=== PATIENT | female | born 1980 ===

== ENCOUNTER 2019-03-23 18:06 | Emergency (ER) | payer SELFPAY ==
[~2019-03-23] VITALS: Ht 165.1 cm; Wt 50.0 kg
[2019-03-23 18:56] LABS: BASOPHILS # (AUTO) 0.1 X10'3 (0-0.2); BASOPHILS % (AUTO) 0.9 % (0-1); EOSINOPHILS % (AUTO) 0.6 % (0-6); HEMATOCRIT 33.9 % (35.0-45.0); HEMOGLOBIN 11.4 g/dl (12.0-16.0); LYMPHOCYTES # (AUTO) 2.7 X10'3 (1.1-4.8); LYMPHOCYTES % (AUTO) 45.6 % (21-51); MEAN CORPUSCULAR HGB CONC 33.6 g/dL (33.0-36.5); MEAN CORPUSCULAR VOLUME 86.5 FL (78-98); MEAN PLATELET VOLUME 7.5 FL (7.4-10.4); MONOCYTES # (AUTO) 0.5 X10'3 (0-0.9); MONOCYTES % (AUTO) 8.7 % (2-12); NEUTROPHILS # (AUTO) 2.7 X10'3 (1.8-7.7); NEUTROPHILS % (AUTO) 44.2 % (42-75); PLATELET COUNT 346 X10'3 (140-440); RED BLOOD COUNT 3.92 X10'6 (4.20-5.60); RED CELL DISTRIBUTION WIDTH 13.9 % (11.5-14.5)
--- NOTE | 2019-03-23 18:59 | NUR ---
CALLED POISON CONTROL PATIENT INGESTED UNKNOWN AMOUNT OF 2 MG RISPERDOL AND "VODKA."
--- NOTE | 2019-03-23 19:02 | NUR ---
CONTINUED NOTES, POISON CONTROL WATCH FOR BEAUTY THERAPIST DEPRESSION,ELEVATED HR,HYPOTENSION, SOMULENCE,N,V, SEIZURES, QTC ELONGATION, ELECTROLYTES
--- NOTE | 2019-03-23 19:04 | NUR ---
POISON CONTROLLED STATES 6-8 HRS OBSERVATION IN ER
[2019-03-23 19:09] LABS: ALANINE AMINOTRANSFERASE 17 U/L (12-78); ALBUMIN 3.5 G/DL (3.4-5.0); ALBUMIN/GLOBULIN RATIO 1.1 (1.1-1.5); ALKALINE PHOSPHATASE 42 IU/L (46-116); ANION GAP 14 (8-16); ASPARTATE AMINO TRANSFERASE 13 U/L (10-37); BILIRUBIN,TOTAL 0.3 MG/DL (0.1-1.0); BLOOD UREA NITROGEN 8 MG/DL (7-18); BUN/CREATININE RATIO 12.5 (6.6-38.0); CALCIUM 8.4 MG/DL (8.5-10.1); CHLORIDE 102 MMOL/L (99-107); CREATININE 0.64 MG/DL (0.40-0.90); ETHANOL 0.068 GM/DL (0.0-0.010); GLUCOSE 108 MG/DL (70-104); POTASSIUM 3.3 MMOL/L (3.5-5.1); SODIUM 136 MMOL/L (135-145); TOTAL PROTEIN 6.8 G/DL (6.4-8.2); eGFR > 90 ML/MIN
--- NOTE | 2019-03-23 19:57 | NUR ---
PATIENT IN BED COVERS ON EYES CLOSED RR EVEN UN LABORED, PATIENT EASY TO AROUSE NO OBSERVABLE S/S OF ACUTE STRESS AT THIS TIME
[2019-03-23] MEDS ORDERED: normal saline 1000ML IV soln IVB ONE (20:00)
[2019-03-23] MEDS ORDERED: magnesium 2GM in 50ml NS 50 ML IV ONE (20:05)
[2019-03-23] MEDS ORDERED: potassium 10mEq/100ml NS w/LIDOcaine (10mg/bag) IV ONE (20:05)
[2019-03-23] MEDS ORDERED: potassium CL 10mEq/100ml bag 100 ML IV ONE (20:15)
--- NOTE | 2019-03-23 21:07 | NUR ---
PATIENT UP REQUESTING TO GO TO BATHROOM PATIENT HAS BEEN ESCORTED TO THE BATHROOM WITH [employer] HELPER PATIENT IS AOX4 AND WAS OBSERVED AMBULATING WITH A STEADY GAIT UPON WALKING TO AND FROM THE RESTROOM
[2019-03-23 21:22] LABS: URINE HCG NEGATIVE (NEG)
[2019-03-23 21:33] LABS: URINE AMPHETAMINE SCREEN NEGATIVE (Neg); URINE BARBITUATE SCREEN NEGATIVE (Neg); URINE BENZODIAZEPINES SCREEN NEGATIVE (Neg); URINE CANNABINOID SCREEN NEGATIVE (Neg); URINE COCAINE SCREEN NEGATIVE (Neg); URINE METHADONE SCREEN NEGATIVE (Neg); URINE OPIATE SCREEN NEGATIVE (Neg); URINE PHENCYCLIDINE SCREEN NEGATIVE (Neg)
[2019-03-23 22:46] VITALS: BP 94/54
== END 2019-03-24 00:20 | disposition left against medical advice (07) ==
LOC: EDBD 18:07 → ER 18:07
DX: T43.591A Poisoning by other antipsychotics and neuroleptics, accidental (unintentional), initial encounter (principal); F10.129 Alcohol abuse with intoxication, unspecified; R94.6 Abnormal results of thyroid function studies; Y92.89 Other specified places as the place of occurrence of the external cause; Y90.0 Blood alcohol level of less than 20 mg/100 ml
CPT/HCPCS: 36415; 71045; 80053; 80305; 80320; 81025; 84443; 85025; 93005; 96365; 99284; J3475; J3480; J7030